=== PATIENT | female | born 1970 | race American Indian/Alaskan Native ===

== ENCOUNTER 2019-01-13 14:37 | Outpatient (CLI) | payer OTHER ==
--- NOTE | 2019-01-13 16:21 | Ultrasound Report ---
BILATERAL DIGITAL DIAGNOSTIC MAMMOGRAM with CAD and LEFT BREAST ULTRASOUND: 01/13/19 CLINICAL: Left palpable breast lump. COMPARISON:None. FINDINGS: The breasts are heterogeneously dense, which may obscure small masses.A round partially circumscribed mass at 12 o'clock measures 2.3 cm and correlates with a palpable marker. No architectural distortion or suspicious calcifications. The right breast is negative. Ultrasound of the upper left breast was performed and demonstrated a benign cyst at 12 o'clock 5 cm from the nipple measuring 2.0 x 1.9 x 1.9 cm. It correlates with the mammographic mass and is non-tender and not painful. A second cyst adjacent to the larger cyst measures 5 mm. No solid mass or shadowing. IMPRESSION: Benign left breast cysts at 12 o'clock with a dominant palpable 2 cm cyst. No suspicious finding. Negative right breast. BI-RADS CATEGORY: 2 -- Benign RECOMMENDATION: Clinical followup and ultrasound guided cyst aspiration if the left breast cyst becomes symptomatic. Recommend routine mammographic screening. ACR BI-RADS MAMMOGRAPHIC CODES: 0 = Needs additional imaging evaluation; 1 = Negative; 2 = Benign; 3 = Probably benign; 4 = Suspicious; 5 = Malignant; 6 = Known biopsy-proven malignancy COMMENT: 1. Dense breast tissue, i.e., adenosis, fibrocystic changes, etc., may obscure an underlying neoplasm. 2. Approximately 10% of cancers are not detected with mammography. 3. A negative mammography report should not delay biopsy if a clinically suspicious mass is present. COMMENT: Patient follow-up letters are generated by our [employer] application.
== END 2019-01-13 14:38 | disposition home or self-care (01) ==
LOC: MAMMO 14:37
PROVIDERS: ATTEND Family Medicine
DX: N60.02 Solitary cyst of left breast (principal)
CPT/HCPCS: 77066